=== PATIENT | male | born 1995 | race Two or more races ===

== ENCOUNTER 2018-04-05 15:14 | Emergency (ER) | payer OTHER ==
[~2018-04-05] VITALS: Ht 188 cm; Wt 93.0 kg
[2018-04-05 15:30] VITALS: BP 126/72
[2018-04-05] MEDS ORDERED: CEPH-264 PO ×2 (16:00→16:05)
--- NOTE | 2018-04-05 16:03 | PHYS DOC ---
Adult General Chief Complaint Chief Complaint: SUTURE/STAPLE REMOVAL [facility] HPI Patient is a 22 year old male who presents with lives in [place] and was snowboarding in [place] on March 18 when he broke his left clavicle. He had surgery in [place]. He is here while on vacation visiting family of his stitches removed. There are stitches and at the stitch there is a small bubble of skin Guzman to have fluid under it. Review of Systems Review of Systems Constitutional: Denies fever or chills [] Eyes: Denies change in visual acuity, redness, or eye pain [] HENT: Denies nasal congestion or sore throat [] Respiratory: Denies cough or shortness of breath [] Cardiovascular: No additional information not addressed in HPI [] GI: Denies abdominal pain, nausea, vomiting, bloody stools or diarrhea [] : Denies dysuria or hematuria [] Musculoskeletal: Left clavicle suture removal. Denies back pain or joint pain [] Integument: Denies rash or skin lesions [] Neurologic: Denies headache, focal weakness or sensory changes [] Endocrine: Denies polyuria or polydipsia [] All other systems were reviewed and found to be within normal limits, except as documented in this note. Physical Exam Physical Exam Constitutional: Well developed, well nourished, no acute distress, non-toxic appearance. [] HENT: Normocephalic, atraumatic, bilateral external ears normal, oropharynx moist, no oral exudates, nose normal. [] Eyes: PERRLA, EOMI, conjunctiva normal, no discharge. [] Neck: Normal range of motion, no tenderness, supple, no stridor. [] Cardiovascular:Heart rate regular rhythm, no murmur [] Lungs & Thorax: Bilateral breath sounds clear to auscultation [] Abdomen: Bowel sounds normal, soft, no tenderness, no masses, no pulsatile masses. [] Skin: Warm, dry, no erythema, no rash. [] Back: No tenderness, no CVA tenderness. [] Extremities: Left clavicle sutures. No tenderness, no cyanosis, no clubbing, ROM intact, no edema. [] Neurologic: Alert and oriented X 3, normal motor function, normal sensory function, no focal deficits noted. [] Psychologic: Affect normal, judgement normal, mood normal. [] EKG EKG [] Radiology/Procedures Radiology/Procedures [] Course & Med Decision Making Course & Med Decision Making Patient is a 22 year old male who presents with lives in [place] and was snowboarding in [place] on March 18 when he broke his left clavicle. He had surgery in [place]. He is here while on vacation visiting family of his stitches removed. There are 10 stitches and at the 5th stitch there is a small bubble of skin Guzman to have fluid under it. Alert and oriented. Skin pink warm and dry. Afebrile. He states he has absolutely no pain. Shots are up-to-date. Denies nausea or vomiting. Patient is able to take his shirt off and raise his arm fully above his head without problems. There is no cellulitis, redness, bruising, oozing, or deformity. Patient is stable and we'll give him Keflex antibiotic. He states that he has a follow-up appointment in [place] with his doctor when he returns. Wound is well healed and edges are approximated. Dragon Disclaimer Dragon Disclaimer This electronic medical record was generated, in whole or in part, using a voice recognition dictation system. Departure Departure Impression: Primary Impression: Wound infection Disposition: HOME, SELF-CARE Condition: STABLE Referrals: UNKNOWN PCP NAME (PCP) Patient Instructions: Wound Infection Additional Instructions: Follow-up with her doctor as scheduled. Take medications as prescribed. Scripts Cephalexin (KEFLEX) 500 Mg Capsule 500 MG PO QID for 10 Days, #40 CAP Prov: FABY RICE APRN 04/05/18 FABY RICE APRN Apr 05, 2018 16:03
== END 2018-04-05 16:32 | disposition home or self-care (01) ==
LOC: ER 15:14
DX: T81.49XA Infection following a procedure, other surgical site, initial encounter (principal)
CPT/HCPCS: 99283

== ENCOUNTER 2021-07-22 21:30 | Emergency (ER) | payer OTHER ==
[~2021-07-22] VITALS: Ht 188 cm; Wt 97.0 kg
[~2021-07-22 21:30] MED LIST: CEPH-264 PO
[2021-07-22] MEDS ORDERED: FAMOTIDINE 20 MG TABLET. PO ONE (21:45)
[2021-07-22] MEDS ORDERED: DEXAMETHASONE SOD PHOS 20 MG/5 ML VIAL. IM ONE (21:45)
[2021-07-22 22:25] LABS: CALCIUM 8.5 mg/dL (8.5-10.1); CREATININE 1.5 mg/dL (0.7-1.3); POTASSIUM 3.4 mmol/L (3.5-5.1)
[2021-07-22 22:31] LABS: ALBUMIN 3.7 g/dL (3.4-5.0); ALBUMIN/GLOBULIN RATIO 1.2 (1.0-1.7); TOTAL BILIRUBIN 0.3 mg/dL (0.2-1.0); TOTAL PROTEIN 6.9 g/dL (6.4-8.2)
[2021-07-22] MEDS ORDERED: DEXA6TAB PO (23:18)
--- NOTE | 2021-07-22 23:18 | PHYS DOC ---
Past Medical History Past Medical History: No Pertinent History Additional Past Surgical Histo: left clavicle Smoking Status: Never Smoker Alcohol Use: Occasionally Drug Use: None Social History Narrative: anabolic steroids General Adult EDM: Chief Complaint: ALLERGIC REACTION HPI: HPI: Patient is a 25 year old male who presents with rash across his torso and upper extremities. Patient reports he first noticed mild redness across his abdomen this morning. He took Benadryl tablets, and the rash seemed to resolve. As the day continued, the rash came on "10 times stronger." Patient reports mild urticaria to the rash surrounding his neck, but otherwise has no physical discomfort. Patient has been taking anabolic steroid supplement Winstrol for the past 2 weeks. He has taken the supplement in the past as well. Patient purchases the supplement at a health supplement store. Patient denies facial swelling, oropharyngeal swelling, macroglossia, shortness of breath, wheezing or any other respiratory distress, abdominal pain, N/V/D. Review of Systems: Review of Systems: ROS negative or noncontributory except as mentioned in HPI. Heart Score: C/O Chest Pain: No Current Medications: Current Medications Medications (Trade) Dose Ordered Sig/Tyree Start Time Stop Time Status Last Admin Dose Admin Dexamethasone Sodium Phosphate (Decadron) 10 mg 1X ONCE 07/22/21 21:45 07/22/21 22:12 DC 07/22/21 22:18 10 MG Famotidine (Pepcid) 20 mg 1X ONCE 07/22/21 21:45 07/22/21 22:12 DC 07/22/21 22:18 20 MG Allergies: Allergies: Allergies Coded Allergies Type Severity Reaction Last Updated Verified No Known Drug Allergies 07/22/21 No Physical Exam: PE: Constitutional: Well developed, well nourished, no acute distress, non-toxic appearance. HENT: Normocephalic, atraumatic, bilateral external ears normal, oropharynx moist, no oral exudates, no oral pharyngeal swelling, no macroglossia, nose normal. Eyes: EOMI, conjunctiva normal, no discharge. Neck: Normal range of motion, no tenderness, supple, no stridor. Cardiovascular: Heart regular rate and rhythm. No apparent murmurs, rubs or gallops. Lungs & Thorax: Equal thoracic expansion, no chest wall tenderness, bilateral breath sounds clear to auscultation. Abdomen: Bowel sounds normal, soft, no tenderness, no masses, no pulsatile masses. Skin: Erythematous, blanching rash noted across abdomen, chest, back and upper extremities. Skin otherwise warm and dry. Extremities: No tenderness, no cyanosis, no clubbing, ROM intact, no edema. Neurologic: Alert and oriented x4, normal motor function, normal sensory function, no focal deficits noted. Current Patient Data: Labs: Laboratory Tests Test 07/22/21 22:10 07/22/21 22:11 Sodium Level 143 mmol/L (136-145) Potassium Level 3.4 mmol/L (3.5-5.1) L Chloride Level 104 mmol/L (98-107) Carbon Dioxide Level 27 mmol/L (21-32) Anion Gap 12 (6-14) Blood Urea Nitrogen 21 mg/dL (8-26) Creatinine 1.5 mg/dL (0.7-1.3) H Estimated GFR (Cockcroft-Gault) 57.0 BUN/Creatinine Ratio 14 (6-20) Glucose Level 100 mg/dL (70-99) H Calcium Level 8.5 mg/dL (8.5-10.1) Total Bilirubin 0.3 mg/dL (0.2-1.0) Aspartate Amino Transferase (AST) 24 U/L (15-37) Alanine Aminotransferase (ALT) 39 U/L (16-63) Alkaline Phosphatase 72 U/L (46-116) Total Protein 6.9 g/dL (6.4-8.2) Albumin 3.7 g/dL (3.4-5.0) Albumin/Globulin Ratio 1.2 (1.0-1.7) Creatine Kinase 407 U/L (39-308) H Laboratory Tests 07/22/21 22:10 Vital Signs: Vital Signs Date Time Temp Pulse Resp B/P (MAP) Pulse Ox O2 Delivery O2 Flow Rate FiO2 07/22/21 21:35 98.0 75 18 145/67 (93) 99 Room Air 98.0 EKG: EKG: EKG Interpreted by Dr. Wayne at 2213: Regular rate and rhythm 62 bpm with no ectopic beats. IL 160 ms. QRS 90 ms. QT 366 ms. QTc 373 ms. No STEMI Course & Med Decision Making: Course & Med Decision Making Pertinent Labs and Imaging studies reviewed. (See chart for details) Patient is a 25-year-old male who presents with rash across his torso and upper extremities. Patient has been taking an oral anabolic steroid supplement for the past 2 weeks. Patient took 50 mg Benadryl prior to arrival. He was provided with Pepcid and dexamethasone here in the department Poison control was contacted. Poison control recommends EKG and liver panel, considering that this patient has taken the medication before and has been on his current regimen for about 2 weeks. This medication has been removed from the market, and supporting control was very interested to know how he obtained this medication. He reports he purchased it from a health supplement store. Poison control also faxed infor mation about the risks and side effects of this medication to pass on to the patient. EKG normal. Labs significant for very slight hypokalemia at 3.4 and elevated creatinine at 1.5. Patient reports he does take creatine supplement and exercises frequently. This does explain his elevation in creatinine. Patient was advised to continue taking Benadryl and Pepcid twice daily. Additionally, I will prescribe p.o. dexamethasone for the next few days. Patient and his at bedside were cautioned about delayed allergic reactions and return precautions were provided. Questions were answered. Patient and his at bedside understand are agreeable to discharge plan. Dr. Wayne was given oral report about this patient and lab findings prior to patient discharge. Sabas Disclaimer: Sabas Disclaimer: This electronic medical record was generated, in whole or in part, using a voice recognition dictation system. Departure Departure Impression: Primary Impression: Drug-induced hypersensitivity reaction Qualified Codes: T78.40XA - Allergy, unspecified, initial encounter Disposition: HOME / SELF CARE / HOMELESS Condition: IMPROVED Referrals: UNKNOWN PCP NAME (PCP) Patient Instructions: Anabolic Steroids-SportsMed, Kidney Function Tests Additional Instructions: I strongly advised that you discontinue use of the anabolic steroid supplement you are currently taking. Please follow-up with your primary care provider or an blanket inspector regarding further use of anabolic steroid supplements. EMERGENCY DEPARTMENT GENERAL DISCHARGE INSTRUCTIONS Thank you for coming to [facility] Emergency Department (ED) today and trusting us with you care. We trust that you had a positive experience in our Emergency Department. If you wish to speak to the department management, you may call the director at . YOUR FOLLOW UP INSTRUCTIONS ARE FOLLOWS: 1. Follow up with your primary care doctor. If you do not have a primary doctor, please ask for a resource list of physicians or clinics that may be able to assist you with follow up care. 2. The emergency provider has interpreted your imaging studies, if any were ordered. The radiology magnetic resonance imaging coordinator also reviewed them. If there is a change in the findings, you will be notified in 48 hours when at all possible. 3. If a lab test or culture has been done, your results will be reviewed and you will be notified if you need a change in treatment. 4. Follow instructions verbalized to you and refer to the printouts if needed. ADDITIONAL INSTRUCTIONS AND INFORMATION: 1. Your care today has been supervised by a physician who is specially trained in emergency care. Many problems require more than one evaluation for a complete diagnosis and treatment. We recommend that you schedule your follow up appointment as recommended to ensure complete treatment of you illness or injury. If you are unable to obtain follow up care and continue to have a prob reena, or if your condition worsens, we recommend that you return to the ED. 2. We are not able to safely determine your condition over the phone nor are we able to give sound medical advice over the phone. For these safety reasons, if you call for medical advice we will ask you to come to the ED for further evaluation. 3. If you have any questions regarding these discharge instructions please call the ED at . SAFETY INFORMATION: In the interest of safety, wellness, and injury prevention; we encourage you to wear your seat belt, if you smoke; quite smoking, and we encourage family to use a protective helmet for bicycling and other sporting events that present an increased risk for head injury. IF YOUR SYMPTOMS WORSEN OR NEW SYMPTOMS DEVELOP, OR YOU HAVE CONCERNS ABOUT YOUR CONDITION; OR IF YOUR CONDITION WORSENS WHILE YOU ARE WAITING FOR YOUR FOLLOW UP APPOINTMENT; EITHER CONTACT YOUR PRIMARY CARE DOCTOR, THE PHYSICIAN WHOSE NAME AND NUMBER YOU WERE GIVEN, OR RETURN TO THE ED IMMEDIATELY. Scripts Dexamethasone (DEXAMETHASONE) 6 Mg Tablet 6 MG PO DAILY for 3 Days, #3 TAB Prov: FELIX HICKS 07/22/21 FELIX HICKS Jul 22, 2021 23:18
[2021-07-22 23:25] VITALS: BP 144/67
--- NOTE | 2021-07-23 06:55 | EKG ---
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
== END 2021-07-22 23:26 | disposition home or self-care (01) ==
LOC: ER 21:30
DX: L50.9 Urticaria, unspecified (principal); T50.995A Adverse effect of other drugs, medicaments and biological substances, initial encounter; Y92.89 Other specified places as the place of occurrence of the external cause
CPT/HCPCS: 36415; 80053; 82550; 93005; 96372; 99284; J1100